=== PATIENT | female | born 1970 | race Caucasian/White ===

== ENCOUNTER 2019-05-30 08:47 | Day surgery (SDC) | payer MEDICAID, SELFPAY | END 2019-05-30 11:55 | disposition home or self-care (01) | PROVIDERS: Family Provider Nurse Practitioner Family; Visit Provider Surgery | DX: I89.0 Lymphedema, not elsewhere classified (principal); J45.909 Unspecified asthma, uncomplicated; K21.9 Gastro-esophageal reflux disease without esophagitis; E66.01 Morbid (severe) obesity due to excess calories; Z68.43 Body mass index [BMI] 50.0-59.9, adult; M79.7 Fibromyalgia; M19.90 Unspecified osteoarthritis, unspecified site; Z82.49 Family history of ischemic heart disease and other diseases of the circulatory system; Z83.3 Family history of diabetes mellitus; I12.9 Hypertensive chronic kidney disease with stage 1 through stage 4 chronic kidney disease, or unspecified chronic kidney disease; N18.9 Chronic kidney disease, unspecified; I50.9 Heart failure, unspecified | CPT/HCPCS: 80048; 81025; 85025; 88305; 93005; J0690; J2001; J2250; J3010; J3490 ==

== ENCOUNTER → 2019-06-06 00:01 | Outpatient (RCR) | payer SELFPAY | LOC: SPT 11:23 | PROVIDERS: Family Provider Nurse Practitioner Family; Visit Provider Licensed Practical Nurse | DX: M54.2 Cervicalgia (principal) | CPT/HCPCS: 97110; 97161 ==

== ENCOUNTER 2019-06-07 06:00 | Outpatient (RCR) | payer MEDICAID, SELFPAY | END 2019-07-03 23:00 | disposition home or self-care (01) | LOC: SPT 06:00 | PROVIDERS: Family Provider Nurse Practitioner Family; PCP Nurse Practitioner Family; Visit Provider Licensed Practical Nurse | DX: M54.2 Cervicalgia (principal) ==

== ENCOUNTER → 2019-06-19 12:53 | Outpatient (BNVA) | payer MEDICAID, SELFPAY | PROVIDERS: Family Provider Nurse Practitioner Family; PCP Nurse Practitioner Family; Referring Provider Internal Medicine Rheumatology; Visit Provider Internal Medicine Rheumatology | DX: M19.90 Unspecified osteoarthritis, unspecified site (principal); Z79.899 Other long term (current) drug therapy; Z11.59 Encounter for screening for other viral diseases; Z11.1 Encounter for screening for respiratory tuberculosis; M77.9 Enthesopathy, unspecified; R21 Rash and other nonspecific skin eruption; M79.7 Fibromyalgia; E66.01 Morbid (severe) obesity due to excess calories; Z68.43 Body mass index [BMI] 50.0-59.9, adult; S83.206A Unspecified tear of unspecified meniscus, current injury, right knee, initial encounter; X58.XXXA Exposure to other specified factors, initial encounter | CPT/HCPCS: 36415; 85025; 86480; 86812; 99214 ==

== ENCOUNTER 2019-06-19 16:42 | Outpatient (CLI) | payer MEDICAID, SELFPAY ==
--- NOTE | 2019-06-19 16:54 | XR_ITS ---
WS: [id number] Left hand, Clinical Data: inflammatory arthritis Comparison: None. Findings: No fractures or dislocations are seen. The soft tissues are unremarkable. The joint spaces are faye l. No bone destruction or erosion is seen. There is no periarticular demineralization or calcifications. XR/XR hand LT min 3V* [id number] Impression: Negative left hand.
--- NOTE | 2019-06-19 16:54 | XR_ITS ---
WS: [id number] Right foot, 3 views, 06/19/2019 Clinical Data: inflammatory arthritis Comparison: None. Findings: No bone destruction or erosion is seen. The joint spaces are normal. There is a large Achilles spur a nd plantar spur. No fractures or dislocations are present. The soft tissues are normal. XR/XR foot RT min 3V* [id number] Impression: Plantar spur and an Achilles spur.
--- NOTE | 2019-06-19 16:54 | XR_ITS ---
WS: [id number] Right hand, 3 views, 06/19/2019 Clinical Data: inflammatory arthritis Comparison: None. Findings: No fractures or dislocations are seen. The soft tissues are unremarkable. The joint spaces are faye l. No bone destruction or erosion is seen. XR/XR hand RT min 3V* [id number] Impression: Negative right hand.
--- NOTE | 2019-06-19 16:54 | XR_ITS ---
WS: [id number] Left foot, 3 views, 06/19/2019 Clinical Data: inflammatory arthritis Comparison: None. Findings: No bone destruction or erosion is seen. The joint spaces are normal. There is a small accessory ossic le or degenerative spur at the base of the left fifth metatarsal. There are 2 plantar spurs and a lar ge Achilles spur. No fractures or dislocations are noted. No periarticular demineralization is seen. XR/XR foot LT min 3V* [id number] Impression: 1. Achilles spur and plantar spurs. 2. Probable osteoarthritic spur or ossicle at the base of the left fifth metata rsal.
--- NOTE | 2019-06-19 16:54 | XR_ITS ---
WS: [id number] Pelvis, AP view, 06/19/2019 Clinical Data: inflammatory arthritis Comparison: None. Findings: No fractures or dislocations are seen. The SI joints and pubic symphysis are intact. The soft tissues are not remarkable. The hips show small lateral acetabular spurs but no erosion, sclerosis, narrowing or fracture is note d. There are clips in the true pelvis from surgery. No bone destruction or erosion is seen. No periar ticular calcifications are present. There is facet joint arthritis at L4-L5 and L5-S1. XR/XR pelvis 1-2V* [id number] Impression: 1. Negative pelvis and hips. 2. Osteoarthritic change of the lower facet joints.
--- NOTE | 2019-06-19 16:54 | XR_ITS ---
WS: [id number] Chest 2 views, 06/19/2019 Clinical Data: inflammatory arthritis Comparison: Portable chest, 03/12/2019. Findings: No nodules, masses or effusions are seen. The heart is normal. The pulmonary vascularity is not increased. No pneumonia or pneumothorax is seen. XR/XR chest 2V* [id number] Impression: Negative chest.
== END 2019-06-19 16:43 | disposition home or self-care (01) ==
LOC: RAD 16:44
PROVIDERS: Family Provider Nurse Practitioner Family; PCP Nurse Practitioner Family; Visit Provider Internal Medicine Rheumatology
DX: M19.90 Unspecified osteoarthritis, unspecified site (principal); M47.896 Other spondylosis, lumbar region; M47.897 Other spondylosis, lumbosacral region; M77.31 Calcaneal spur, right foot; M77.32 Calcaneal spur, left foot
CPT/HCPCS: 71046; 72170; 73130; 73630; 80076; 82565; 84439; 84443; 85651; 86140; 86431; 86704; 86803; 87340

== ENCOUNTER → 2019-06-23 11:23 | Outpatient (BNVA) | payer MEDICAID, SELFPAY | PROVIDERS: Family Provider Nurse Practitioner Family; PCP Nurse Practitioner Family; Visit Provider Nurse Practitioner Family | DX: E66.01 Morbid (severe) obesity due to excess calories (principal); L03.90 Cellulitis, unspecified | CPT/HCPCS: 87070 ==

== ENCOUNTER 2019-07-17 16:34 | Emergency (ER) | payer MEDICAID, SELFPAY ==
[2019-07-17 16:55] VITALS: BP 157/105; PULSE 91; RESP 22; TEMP 36.8; O2SAT 95; BMI 58.8
== END 2019-07-17 19:16 | disposition left against medical advice (07) ==
LOC: ER 16:56
PROVIDERS: Emergency Provider Emergency Medicine; Family Provider Nurse Practitioner Family; PCP Nurse Practitioner Family
DX: Z53.21 Procedure and treatment not carried out due to patient leaving prior to being seen by health care provider (principal)
CPT/HCPCS: 99281

== ENCOUNTER → 2019-07-19 08:38 | Outpatient (BNVA) | payer MEDICAID, SELFPAY | PROVIDERS: Family Provider Nurse Practitioner Family; PCP Nurse Practitioner Family; Visit Provider Internal Medicine Rheumatology | DX: R70.0 Elevated erythrocyte sedimentation rate (principal); R79.82 Elevated C-reactive protein (CRP); Z79.899 Other long term (current) drug therapy; M16.0 Bilateral primary osteoarthritis of hip; S83.203A Other tear of unspecified meniscus, current injury, right knee, initial encounter; M79.7 Fibromyalgia; X58.XXXA Exposure to other specified factors, initial encounter | CPT/HCPCS: 36415; 85651; 86140; 99214 ==

== ENCOUNTER 2019-07-26 08:33 | Outpatient (CLI) | payer MEDICAID, SELFPAY | END 2019-07-26 08:34 | disposition home or self-care (01) | LOC: RADWPI 10:47 | PROVIDERS: Family Provider Nurse Practitioner Family; PCP Nurse Practitioner Family; Visit Provider Anesthesiology Pain Medicine | DX: M79.7 Fibromyalgia (principal); M47.22 Other spondylosis with radiculopathy, cervical region; M54.5 Low back pain; M19.90 Unspecified osteoarthritis, unspecified site; Z79.891 Long term (current) use of opiate analgesic | CPT/HCPCS: 20553; 99999; J1030; J3490 ==

== ENCOUNTER → 2019-07-27 16:18 | Outpatient (BNVA) | payer MEDICAID, SELFPAY | PROVIDERS: Family Provider Nurse Practitioner Family; PCP Nurse Practitioner Family; Referring Provider Internal Medicine Rheumatology; Visit Provider Orthopaedic Surgery | DX: M17.11 Unilateral primary osteoarthritis, right knee (principal); M25.561 Pain in right knee | CPT/HCPCS: 73560; 73565 ==

== ENCOUNTER 2019-08-04 12:47 | Outpatient (CLI) | payer MEDICAID, SELFPAY ==
--- NOTE | 2019-08-04 12:51 | XR_ITS ---
WS: [id number] Lumbar spine, 5 views, 08/04/2019 Clinical Data: lumbar pain Comparison: None. Findings: No compression fractures or subluxation is seen. No disc space narrowing is seen. The transverse proc esses and SI joints are normal. The oblique films show no spondylolysis. There is minimal anterior osteoarthritic spurring of the lum bar vertebral bodies. There is moderate spurring of the lower thoracic vertebral bodies. Facet joint arthritis is present from L2-L3 to L5-S1. There are surgical clips in the anterior pelvis. There is a large amount of fecal material throughout the colon. XR/XR lumbar spine min 4V [id number] Impression: 1. Minimal osteoarthritis of the lumbar vertebral bodies. 2. Facet joint arthritis from L2 through S1.
== END 2019-08-04 12:48 | disposition home or self-care (01) ==
LOC: RADWPI 12:50
PROVIDERS: Family Provider Nurse Practitioner Family; PCP Nurse Practitioner Family; Visit Provider Anesthesiology Pain Medicine
DX: M47.896 Other spondylosis, lumbar region (principal); M54.5 Low back pain
CPT/HCPCS: 72114

== ENCOUNTER → 2019-08-21 11:54 | Outpatient (BNVA) | payer MEDICAID, SELFPAY | PROVIDERS: Family Provider Nurse Practitioner Family; PCP Nurse Practitioner Family; Visit Provider Anesthesiology Pain Medicine | DX: M47.816 Spondylosis without myelopathy or radiculopathy, lumbar region (principal); M51.36 Other intervertebral disc degeneration, lumbar region; M54.12 Radiculopathy, cervical region; M47.812 Spondylosis without myelopathy or radiculopathy, cervical region; M50.020 Cervical disc disorder with myelopathy, mid-cervical region, unspecified level; M79.7 Fibromyalgia | CPT/HCPCS: 99215 ==

== ENCOUNTER → 2019-08-23 12:14 | Outpatient (BNVA) | payer MEDICAID, SELFPAY | PROVIDERS: Family Provider Nurse Practitioner Family; PCP Nurse Practitioner Family; Visit Provider Anesthesiology Pain Medicine | DX: M47.816 Spondylosis without myelopathy or radiculopathy, lumbar region (principal) | CPT/HCPCS: 64493; 64494; 64495; 64520; J2001; J3490 ==

== ENCOUNTER → 2019-08-25 15:01 | Outpatient (BNVA) | payer MEDICAID, SELFPAY | PROVIDERS: Family Provider Nurse Practitioner Family; PCP Nurse Practitioner Family; Visit Provider Nurse Practitioner Family | DX: R82.90 Unspecified abnormal findings in urine (principal); H10.9 Unspecified conjunctivitis; B37.3 Candidiasis of vulva and vagina | CPT/HCPCS: 81000 ==

== ENCOUNTER → 2019-09-04 11:01 | Outpatient (BNVA) | payer MEDICAID, SELFPAY | PROVIDERS: Family Provider Nurse Practitioner Family; PCP Nurse Practitioner Family; Visit Provider Anesthesiology Pain Medicine | DX: M51.36 Other intervertebral disc degeneration, lumbar region (principal); M47.816 Spondylosis without myelopathy or radiculopathy, lumbar region; M47.22 Other spondylosis with radiculopathy, cervical region; M47.812 Spondylosis without myelopathy or radiculopathy, cervical region; M50.020 Cervical disc disorder with myelopathy, mid-cervical region, unspecified level; M79.7 Fibromyalgia; K21.9 Gastro-esophageal reflux disease without esophagitis; M62.830 Muscle spasm of back | CPT/HCPCS: 85651; 86140; 99213; 99214 ==

== ENCOUNTER → 2019-09-12 09:39 | Outpatient (BNVA) | payer MEDICAID, SELFPAY | PROVIDERS: Family Provider Nurse Practitioner Family; PCP Nurse Practitioner Family; Visit Provider Internal Medicine Rheumatology | DX: Z79.899 Other long term (current) drug therapy (principal); M19.90 Unspecified osteoarthritis, unspecified site | CPT/HCPCS: 36415; 80076; 82565; 83883 ==

== ENCOUNTER 2019-09-28 13:42 | Emergency (ER) | payer MEDICAID, SELFPAY ==
--- NOTE | 2019-09-28 13:44 | ECG_ITS ---
Measurements Intervals [place] Rate: 76 P: 46 IA: 173 QRS: 21 QRSD: 82 T: 23 QT: 384 QTc: 434 SINUS RHYTHM Compared to ECG 05/29/2019 10:36:24 No significant changes Electronically Signed On 09-28-2019 18:13:33 CDT by Tianna Parkinson M.D. [email or web address]
--- NOTE | 2019-09-28 13:44 | XR_ITS ---
WS: [id number] CHEST XRAY TECHNIQUE: Portable chest. CLINICAL INFORMATION: chf COMPARISON: June 19, 2019 FINDINGS: Heart: Cardiomegaly. Lungs: Moderate chronic emphysematous changes. No acute pulmonary infiltrates. No focal pneumonia. Bones: Normal visualized bony structures. XR/XR chest 1V portable [id number] IMPRESSION: Stable cardiomegaly. No acute chest findings.
[2019-09-28 14:00] VITALS: BP 182/100; PULSE 82; RESP 16; TEMP 36.8; O2SAT 99; BMI 60.4
--- NOTE | 2019-09-28 14:08 | W.ED.GENADLT ---
HPI - General Adult General: Chief complaint: General Medical Stated complaint: SOB with exertion, generalized edema Time Seen by Provider: 09/28/19 14:07 History of Present Illness: HPI narrative: 49-year-old female female presents complaints of swelling her legs hand and feet with increasing dyspnea she denies any chest pain she does have increasing orthopnea though. She denies fever sweats or chills or productive cough. She does tell me she had a stroke about 2 years ago. She denies history of DVT or PE. About a month ago she was started on prednisone and methotrexate at one point she was told she had lupus she had seen local commercial construction project manager and they decided she did not have lupus based on some further testing that I did. She also had recently been started on Lyrica and had a muscle relaxer changed at the pain clinic she sees. Last summer she had all of her diuretics stopped. She also tells me she has had coronary artery disease in the past, but a Lexiscan sestamibi stress test done in December 2018 was negative.. Looking through her old records she had an echocardiogram done in December 2018 that showed an ejection fraction of 50% with some grade grade 2 diastolic dysfunction. Patient reported she had a mitral valve prolapse but there is no mitral valve prolapse stenosis or regurgitation noted on echocardiogram done in December 2018. She also do sestamibi stress test that was read as normal with no evidence of any coronary artery disease. I do not find in her old records any evidence of any previous NE or percutaneous angiography. Associated symptoms: Reports dyspnea; Deny chest pain, malaise, nausea, rash or vomiting Review of Systems Const: Denies: fever, chills, body aches, change in appetite, fatigue or malaise ENMT: Denies: throat pain, ear pain, nasal discharge or nasal congestion Card: Reports: edema, shortness of breath on exertion and shortness of breath when lying down; Denies: chest pain Resp: Reports: shortness of breath; Denies: productive cough or non-productive cough GI: Denies: abdominal pain, nausea, vomiting, vomiting blood, coffee grounds in vomit, diarrhea, constipation, bloating, blood in stool or black tarry stool : Denies: flank pain, difficulty urinating, painful urination, urinary frequency or urinary urgency Skin/Breast: Denies: rash or itching [facility] ED PFSH: Medical History Cervical disc disorder with myelopathy of mid-cervical region Elevated C-reactive protein (CRP) Elevated erythrocyte sedimentation rate Encounter for screening for other viral diseases Enthesitis Fibromyalgia GERD (gastroesophageal reflux disease) High risk medication use Inflammatory arthritis Long-term current use of opiate analgesic Lymphedema of breast Morbid obesity with BMI of 50.0-59.9, adult Obesity (BMI 35.0-39.9 without comorbidity) Pain management contract signed Skin rash Sleep apnea Stenosis of cervical spine with myelopathy Surgical History H/O shoulder surgery RIGHT 2012 History of breast biopsy (~05/2019) History of laparoscopic cholecystectomy Family History Grandfather Diabetes Stroke Grandmother Diabetes Stroke Father CAD (coronary artery disease) Hypertension Arthritis Mother CAD (coronary artery disease) Arthritis Family/Other Congestive heart failure Denies family history of Anesthesia complication Bleeding disorder Social History Smoking and tobacco status: never smoked Alcohol intake: never Lives independently: Yes Household members: spouse Marital status: Current occupational status: disabled History of recent travel: No Female Reproductive History: Date of last menstrual period: 08/18/19 Spontaneous abortions: Yes (3) Physical Exam Narrative: EXAM NARRATIVE: Morbidly obese 49-year-old female no acute respiratory distress Const: COMMON NORMALS: no apparent distress GENERAL APPEARANCE: cooperative and comfortable NUTRITIONAL APPEARANCE: obese morbidly obese ORIENTATION/CONSCIOUSNESS: Yes awake, Yes oriented to person, Yes oriented to place and Yes oriented to time HENMT: COMMON NORMALS: normocephalic, head/scalp atraumatic, hearing grossly normal bilaterally, external ears normal, EAC's normal, TM's normal bilaterally, nasal mucous membranes and turbinates normal, moist oral mucous membranes and oropharynx normal HEAD & SCALP: normocephalic and atraumatic NOSE: nasal mucous membranes and turbinates normal EXTERNAL EAR: Yes external ears normal EXTERNAL AUDITORY CANAL: EAC's normal TYMPANIC MEMBRANE: TM's normal bilaterally Eye: COMMON NORMALS: PERRL, EOMs intact bilaterally, conjunctivae normal and no scleral icterus CONJUNCTIVA: Yes conjunctivae normal PUPIL: Yes PERRL Neck/C-Spine: COMMON NORMALS: full ROM, no lymphadenopathy, supple and no JVD Lymph: LYMPHATIC: no lymphadenopathy noted and no lymphedema noted Resp: COMMON NORMALS: normal respiratory effort, no retractions, no use of accessory muscles and clear to auscultation bilaterally AUSCULTATION: clear to auscultation bilaterally Cardio: COMMON NORMALS: no JVD, regular rate, regular rhythm and no murmurs RATE: regular rate RHYTHM: regular rhythm GI: COMMON NORMALS: soft to palpation and no hepatosplenomegaly AUSCULTATION: Yes normoactive bowel sounds PALPATION: Yes soft, No tender, No guarding and Yes no hepatosplenomegaly Extremity: COMMON NORMALS: normal to inspection, normal capillary refill, no clubbing, cyanosis or edema and no calf tenderness GENERAL: Yes edema (1-2+ edema bilateral lower extremities to the level of the midcalf) Neuro: SENSORIUM/ORIENTATION: Yes oriented to person, Yes oriented to place and Yes oriented to time Skin: COMMON NORMALS: no rashes or lesions noted GENERAL SKIN EXAM: no rashes or lesions noted Course Vital Signs: Vital signs: Vital Signs Temperature 98.3 F 09/28/19 14:00 Pulse Rate 104 H 09/28/19 16:11 Respiratory Rate 18 09/28/19 16:11 Blood Pressure 189/98 09/28/19 16:11 Pulse Oximetry 98 09/28/19 16:11 MDM - General Adult MDM Narrative: Medical decision making narrative: Leti findings with the patient. Also called Dr. Catherine she denied anything particular she did send her to the emergency room for. Does not look like the patient's had any demonstrable prove of congestive heart failure the past although she did definitely have some renal failure last year. Her echo and her sestamibi stress test looked good. And her creatinine today shows that her renal issues have resolved those were precipitated by overuse of diuretics and NSAIDs for as per the notes. I think it be reasonable to put her on a short course of Lasix with some potassium supplement. Put her on Lasix for 5 days with potassium 20 mEq daily have her follow-up with her primary care doctor return if worsens or has problems. Lab Data: Labs: Lab Results 09/28/19 09/28/19 09/28/19 Range/Units 14:12 14:12 14:12 WBC 7.9 (4.0-10.0) 10^3/ uL RBC 4.32 (4.1-5.3) 10^6/u L Hgb 10.2 L (11.5-15.3) g/dL Hct 35.2 L (37.0-47.0) % MCV 81.5 (81-99) fL MCH 23.6 L (28.0-34.0) pg MCHC 29.0 L (30.0-36.0) g/dL RDW 18.5 H (12.1-15.1) % Plt Count 284 (130-400) 10^3/c mm MPV 9.0 (7.4-10.4) fL Neut % (Auto) 61.0 % Lymph % (Auto) 33.6 % [place] % (Auto) 3.7 % Eos % (Auto) 1.1 % Baso % (Auto) 0.3 % Neut # (Auto) 4.8 (1.8-7.7) 10^3/u L Lymph # (Auto) 2.7 (0.8-4.8) 10^3/u L [place] # (Auto) 0.3 (0.2-0.9) 10^3/u L Eos # (Auto) 0.1 (0.0-0.8) 10^3/u L Baso # (Auto) 0.0 (0.0-0.1) 10^3/u L Nucleated RBC % (a uto) 0 % Nucleated RBCs # 0.0 /100WBC PT 13.20 (10.5-13.3) SECO NDS INR 0.98 (0.8-1.2) Sodium 139 (136-145) mmol/L Potassium 3.7 (3.5-5.1) mmol/L Chloride 102 (98-107) mmol/L Carbon Dioxide 27 (22-29) mmol/L Anion Gap 13.7 (5-19) BUN 12 (6-20) mg/dL Creatinine 0.8 (0.5-0.9) mg/dL GFR Calculation 76.9 L (90-130) mL/min Glucose 157 H (65-115) mg/dL Calculated Osmolal ity 287 (285-295) mOsm/k g Calcium 9.0 (8.5-10.5) mg/dL Total Bilirubin 0.2 (0.15-1.2) mg/dL AST 29 (0-32) U/L ALT 30 (0-33) U/L Alkaline Phosphata se 101 (35-105) IU/L NT-Pro-B Natriuret Pep 239 H (0-125) pg/mL Total Protein 6.8 (6.6-8.7) g/dL Albumin 3.4 L (3.5-5.2) g/dL Globulin 3.4 (1.3-4.6) g/dL Discharge Plan Discharge Patient Disposition: Home, Self-Care Clinical Impression: Bilateral edema of lower extremity, Fibromyalgia, Morbid obesity with BMI of 50.0-59.9, adult, Medication side effect Condition: Stable Prescriptions: New Lasix 40 mg tablet 40 mg PO QAM Qty: 5 RF: 0 potassium chloride 20 mEq tablet,ER particles/crystals 10 meq PO DAILY Qty: 5 RF: 0 No Action docusate sodium [Dulcolax Stool Softener (dss)] 100 mg capsule 100 mg PO DAILY RF: 0 lisinopril 10 mg tablet 10 mg PO DAILY Qty: 30 RF: 2 methotrexate sodium 2.5 mg tablet 10 mg PO .Q7 days Qty: 20 RF: 2 prednisone 2.5 mg tablet 10 mg PO DAILY Qty: 120 RF: 1 folic acid 1 mg tablet 1 mg PO DAILY Qty: 90 RF: 3 albuterol sulfate 90 mcg/actuation HFA aerosol inhaler 2 puff INHALATION Q6H PRN (Reason: shortness of breath) Qty: 6.7 RF: 1 methocarbamol [Robaxin-750] 750 mg tablet 750 mg PO TID Qty: 90 RF: 0 tramadol 50 mg tablet 50 mg PO BID MDD 2 PRN (Reason: pain) Qty: 60 RF: 0 cholecalciferol (vitamin D3) 50,000 unit capsule 50,000 unit PO .WEEKLY RF: 0 citalopram 20 mg tablet 40 mg PO DAILY RF: 0 acetaminophen 650 mg tablet extended release 650 mg PO Q12H PRNRF: 0 pregabalin [Lyrica] 75 mg capsule 75 mg PO BID Qty: 60 RF: 2 buspirone 10 mg tablet 10 mg PO TID Qty: 90 RF: 0 omeprazole 40 mg capsule,delayed release(DR/EC) 40 mg PO DAILY Qty: 30 RF: 0 Discharge Orders: Discharge Order (Routine); Ordered 09/28/19 Ordered By: Sabino Hare Referrals: Adrienne Abreu FNP [Primary Care Provider] - Discharge Activity: Increase activity as tolerated Patient Instructions: Low Sodium Diet (ED) Activity Restrictions/Additional Instructions: Follow-up with your primary care provider in 4 to 5 days for recheck and a BMP. Discharge Date/Time: 09/28/19 16:00 Coding Level of Care Code ED Retrieval Specialist for Chg Fwd Exam Comprehensive
[2019-09-28 14:21] LABS: Basophils % 0.3 %; Eosinophils # 0.1 10^3/uL (0.0-0.8); Eosinophils % 1.1 %; Hematocrit 35.2 % (37.0-47.0); Hemoglobin 10.2 g/dL (11.5-15.3); Lymphocytes # 2.7 10^3/uL (0.8-4.8); Lymphocytes % 33.6 %; Mean Corpuscular Hemoglobin 23.6 pg (28.0-34.0); Mean Corpuscular Volume 81.5 fL (81-99); Monocytes # 0.3 10^3/uL (0.2-0.9); Monocytes % 3.7 %; Neutrophils # 4.8 10^3/uL (1.8-7.7); Nucleated Red Blood Cells % 0 %; Platelet Count 284 10^3/cmm (130-400); Red Blood Count 4.32 10^6/uL (4.1-5.3); Red Cell Distribution Width 18.5 % (12.1-15.1); White Blood Count 7.9 10^3/uL (4.0-10.0)
[2019-09-28 14:33] LABS: INR 0.98 (0.8-1.2)
[2019-09-28 14:53] LABS: Alanine Aminotransferase 30 U/L (0-33); Albumin Level 3.4 g/dL (3.5-5.2); Alkaline Phosphatase 101 IU/L (35-105); Anion Gap 13.7 (5-19); Aspartate Amino Transferase 29 U/L (0-32); Blood Urea Nitrogen 12 mg/dL (6-20); Carbon Dioxide 27 mmol/L (22-29); Chloride 102 mmol/L (98-107); Globulin 3.4 g/dL (1.3-4.6); Glomerular Filtration Rate 76.9 mL/min (90-130); Glucose 157 mg/dL (65-115); NT Pro B Type Natriuretic Pept 239 pg/mL (0-125); Osmolality Calculated 287 mOsm/kg (285-295); Potassium 3.7 mmol/L (3.5-5.1); Sodium 139 mmol/L (136-145); Total Bilirubin 0.2 mg/dL (0.15-1.2); Total Protein 6.8 g/dL (6.6-8.7)
[2019-09-28] MEDS: FUROsemide 10 mg/mL SDV 4mL 40 MG IVP (15:05)
[2019-09-28 15:54] VITALS: BP 189/98; PULSE 86; RESP 18; O2SAT 100
[2019-09-28 16:11] VITALS: BP 189/98; PULSE 104; RESP 18; O2SAT 98
== END 2019-09-28 16:00 | disposition home or self-care (01) ==
LOC: ER 16:13
PROVIDERS: Emergency Medicine; Emergency Provider Family Medicine; Family Provider Nurse Practitioner Family; PCP Nurse Practitioner Family
DX: R60.0 Localized edema (principal); M79.7 Fibromyalgia; E66.01 Morbid (severe) obesity due to excess calories; Z68.43 Body mass index [BMI] 50.0-59.9, adult; T50.905A Adverse effect of unspecified drugs, medicaments and biological substances, initial encounter; K21.9 Gastro-esophageal reflux disease without esophagitis
CPT/HCPCS: 12345; 36415; 71045; 80053; 83880; 85025; 85610; 93005; 96374; 99281; 99283; J1940